=== PATIENT | male | born 1945 | race Caucasian/White ===

== ENCOUNTER → 2020-02-05 | Outpatient (CLI) | payer MEDICARE, BC ==
[2020-02-05] VITALS (7 sets, daily range): BP systolic 110–143; BP diastolic 57–79
[~2020-02-05] VITALS: Ht 162.6 cm; Wt 84.1 kg
[~2020-02-05] MED LIST: aminophylline 250mg/10ml inj. IV PRN; metoprolol tartrate 1mg/ml inj IV PRN; nitroGLYCERIN 0.4mg SUBLingual tab SL PRN; normal saline 500ml IV soln 500 ML IV ONE; regadenoson 0.4mg/5ml syringe IV ONE
== END | disposition home or self-care (01) ==
LOC: RAD 07:50
PROVIDERS: ATTEND Internal Medicine Cardiovascular Disease
DX: Z01.810 Encounter for preprocedural cardiovascular examination (principal)
CPT/HCPCS: 78452; 93017; A9500; J2785; J7040